=== PATIENT | female | born 1970 ===

== ENCOUNTER 2020-04-21 13:23 | Emergency (ER) | payer BC ==
--- NOTE | 2020-04-21 14:16 | ED ---
General Adult HPI - General Chief complaint: ENT Stated complaint: facial droop, rt sided weakness Time Seen by Provider: 04/21/20 13:38 Source: patient, family, RN notes reviewed Mode of arrival: wheelchair Limitations: language barrier - History of Present Illness Initial comments: This a 49-year-old female presents emergency department with family chief complaint right-sided facial drooping. Patient states symptoms started around 4 AM. Patient states that she did have a headache and facial pressure yesterday. Patient states that she's having fluids drip out for right side of her mouth. Patient states it's hard to close her right eye. No significant upper or lower shunted symptoms no chest pain or shortness breath. Patient does not take any current medications she states she had pain in the right side of her head last night. - Related Data Previous Rx's Medication Instructions Recorded predniSONE 50 mg PO DAILY #5 tab 04/21/20 valACYclovir HCL [Valtrex] 1,000 mg PO Q8HR #30 tab 04/21/20 Allergies Allergy/AdvReac Type Severity Reaction Status Date / Time No Known Allergies Allergy Verified 04/21/20 13:29 Review of Systems ROS Statement: Those systems with pertinent positive or pertinent negative responses have been documented in the HPI. ROS Other: All systems not noted in ROS Statement are negative. Past Medical History Past Medical History: No Reported History History of Any Multi-Drug Resistant Organisms: Unobtainable Past Surgical History: Section Past Psychological History: No Psychological Hx Reported Smoking Status: Never smoker Past Alcohol Use History: None Reported Past Drug Use History: None Reported General Exam Limitations: language barrier General appearance: alert, in no apparent distress Head exam: Present: atraumatic, normocephalic, normal inspection Eye exam: Present: normal appearance, PERRL, EOMI. Absent: scleral icterus, con junctival injection, periorbital swelling ENT exam: Present: normal exam, normal oropharynx, mucous membranes moist Neck exam: Present: normal inspection, full ROM. Absent: tenderness, meningismus, lymphadenopathy Respiratory exam: Present: normal lung sounds bilaterally. Absent: respiratory distress, wheezes, rales, rhonchi, stridor Cardiovascular Exam: Present: regular rate, normal rhythm, normal heart sounds. Absent: systolic murmur, diastolic murmur, rubs, gallop, clicks GI/Abdominal exam: Present: soft, normal bowel sounds. Absent: distended, tenderness, guarding, rebound, rigid Extremities exam: Present: other (Upper and lower extremity strength equal bilaterally) Neurological exam: Present: alert, oriented X3, CN II-XII intact, reflexes normal, other (Finger to nose intact). Absent: motor sensory deficit Expanded Patient oriented to: Present: person, place, time Speech: Present: fluid speech Cranial nerves: EOM's Intact: Normal, Gag Reflex: Normal, Tongue Deviation: Normal, Nystagmus: Normal, Facial Sensation: Normal, Facial Palsy without Forehead Movement: Abnormal Right Cerebellar function: Finger to Nose: Normal, Romberg: Normal Motor strength exam: RUE: 5, LUE: 5, RLE: 5, LLE: 5 Eye Response: (4) open spontaneously Motor Response: (6) obeys commands Verbal Response: (5) oriented Skin exam: Present: warm, dry, intact, normal color. Absent: rash Course Vital Signs 04/21/20 13:24 Temperature 98.8 F Pulse Rate 72 Respiratory 20 Rate Blood Pressure 142/76 O2 Sat by Pulse 100 Oximetry Medical Decision Making - Medical Decision Making 49-year-old female presented from for right-sided facial drooping. Patient has right-sided facial paralysis or Eduardo's palsy. Patient symptoms to include her right-sided forehead and right eye. Patient we discharged with steroids, Valtrex. Patient will use eyedrops to the right eye and may cover her right eye if she is unable to close it completely. Patient follow-up with urology and return parameters were discussed. Disposition Clinical Impression: Eduardo's palsy Disposition: HOME SELF-CARE Condition: Stable Instructions (If sedation given, give patient instructions): Eduardo Palsy (ED) Additional Instructions: Please return to the Emergency Department if symptoms worsen or any other concerns. Prescriptions: predniSONE 50 mg PO DAILY #5 tab valACYclovir HCL [Valtrex] 1,000 mg PO Q8HR #30 tab Is patient prescribed a controlled substance at d/c from ED?: No Referrals: None,Stated [Primary Care Provider] - 1-2 days Gucci Douglas MD [REFERRING] - 1-2 days Time of Disposition: 15:11
--- NOTE | 2020-04-21 14:35 | CT ---
EXAMINATION TYPE: CT brain wo con DATE OF EXAM: 04/21/2020 COMPARISON: None. HISTORY: right side facial numbness CT DLP: 1017.4 mGycm. Automated Exposure Control for Dose Reduction was Utilized. TECHNIQUE: CT scan of the head is performed without contrast. FINDINGS: There is no acute intracranial hemorrhage, mass effect, or midline shift identified. The ventricles and sulci are within normal limits in size. Coker-white matter differentiation maintained. The globes are intact and the visualized sinuses are clear. IMPRESSION: Unremarkable study.
[2020-04-21 15:18] VITALS: BP 128/78; PULSE 81; RESP 16; TEMP 98
== END 2020-04-21 15:17 | disposition home or self-care (01) ==
LOC: EC 13:23
DX: G51.0 Bell's palsy (principal)
CPT/HCPCS: 70450; 99284